=== PATIENT | female | born 1940 | race Caucasian/White ===

== ENCOUNTER → 2022-09-13 14:04 | Outpatient (CLI) | payer OTHER, SELFPAY ==
[2022-09-15 10:14] LABS: Candida species Negative (Negative); Gardnerella vaginalis Positive (Negative); Trichomoas vaginalis Negative (Negative)
== END ==
PROVIDERS: PCP Nurse Practitioner Family; Visit Provider Physician Assistant Medical
DX: Z96.0 Presence of urogenital implants (principal)
CPT/HCPCS: 87480; 87510; 87660

== ENCOUNTER → 2023-08-01 14:23 | Outpatient (CLI) | payer OTHER, SELFPAY ==
[2023-08-03 15:00] LABS: Candida species Negative (Negative); Gardnerella vaginalis Positive (Negative); Trichomoas vaginalis Negative (Negative)
== END ==
PROVIDERS: PCP Nurse Practitioner Family; Visit Provider Physician Assistant Medical
DX: N89.8 Other specified noninflammatory disorders of vagina (principal)
CPT/HCPCS: 87480; 87510; 87660